=== PATIENT | male | born 1975 | race Hispanic/Latino ===

== ENCOUNTER → 2018-10-07 | Outpatient (CLI) | payer OTHER, SELFPAY ==
--- NOTE | 2018-10-07 18:58 | DIREP ---
PROCEDURE:MR KNEE WITHOUT CONTRAST [Right] TECHNIQUE:Axial proton density fat sat; coronal T1 and inversion recovery; sagittal proton density, proton density fat sat and T2 weighted sequences were obtained. COMPARISON:None. INDICATIONS:MENISCAL TEAR FINDINGS: Menisci: The lateral meniscus is intact. Complex tear is present in the body and posterior horn of the medial meniscus. Radial component is present in the body series 401, image 7 which propagates as a horizontal tear in the posterior horn series 401 images 8-11. The anterior horn is intact. Cruciate ligaments: The anterior and posterior cruciate ligaments are normal. Bones and joints space: There is moderate joint effusion with mild synovitis. Mild marginal osteophyte formation is present in the medial femoral condyle and medial tibial plateau series 601, image 20. There is also mild joint space narrowing. There is full thickness chondromalacia in the central weight-bearing portion of the medial femoral condyle measuring 0.66 x 0.89 cm (medial-lateral by AP) on coronal series 701, image 21 and sagittal series 501, image 10. Subjacent marrow edema is present in the medial femoral condyle indicating stress reaction and hyperemia. No fracture line is identified. The articular cartilage in the lateral femorotibial compartment is intact. Collateral ligaments: The medial and lateral collateral ligaments are intact. Extensor mechanism: The quadriceps and patellar tendons are normal. The patella is intact. Fibrillation is present in the articular cartilage of the medial patellar facet series 201, image 23. No full-thickness defect is identified. The articular cartilage in the trochlear groove is intact. The medial and lateral retinacula are normal. The pre-femoral, suprapatellar and infrapatellar fat pads are normal. There is no prepatellar or infrapatellar bursitis. Miscellaneous: The muscles and tendons about the knee are intact. The neurovascular structures are normal. The tibiofibular joint is normal. There is a small Agudelo's cyst measuring 4.89 x 2.07 x 0.72 cm (cc by AP by medial-lateral) on sagittal series 401, image 11 and axial series 201, image 13. There is mild edematous change distally consistent with mild extravasation. CONCLUSION: 1. Complex tear body and posterior horn of the medial meniscus. 2. Developing osteoarthritis in the medial femoral tibial compartment with joint space narrowing, osteophyte formation and full-thickness chondromalacia. 3. Moderate-sized joint effusion. 4. Fibrillation in the articular cartilage in the medial patellar facet. 5. Small Agudelo's cyst with mild distal extravasation. Dictated by: Ezekiel Juárez M.D. on 10/07/2018 at 06:50 PM
== END | disposition home or self-care (01) ==
LOC: RAD 15:27
PROVIDERS: ATTEND Orthopaedic Surgery
DX: S83.206A Unspecified tear of unspecified meniscus, current injury, right knee, initial encounter (principal); M17.11 Unilateral primary osteoarthritis, right knee; M62.89 Other specified disorders of muscle; M71.21 Synovial cyst of popliteal space [Baker], right knee; X58.XXXA Exposure to other specified factors, initial encounter; Y93.89 Activity, other specified; Y92.89 Other specified places as the place of occurrence of the external cause; Y99.8 Other external cause status
CPT/HCPCS: 73721